=== PATIENT | female | born 1945 | race Caucasian/White ===

== ENCOUNTER 2017-04-30 15:46 | Inpatient (IN) | payer MEDICARE, MEDICAID ==
--- NOTE | 2017-04-30 16:22 | ED Physician Chart ---
ED Chief Complaint/HPI - Patient Information Date Seen:: 04/30/17 Time Seen:: 16:05 Chief Complaint:: constipation History of Present Illness:: Patient states she always has constipation. There was a small amount of blood on her stool last week. Allergies:: Allergies Allergy/AdvReac Type Severity Reaction Status Date / Time No Known Allergies Allergy Verified 04/30/17 15:52 Historian:: Patient Review:: Transfer documents Reviewed ED Review of Systems - Review of Systems General/Constitutional: No fever, No chills Skin: No skin lesions Head: No headache Eyes: No loss of vision ENT: No earache Neck: No neck pain Cardio Vascular: No chest pain Pulmonary: No SOB GI: Hematochezia, Constipation G/U: No dysuria, No frequency, No hematuria Musculoskeletal: No bone or joint pain, No back pain, No muscle pain Psychiatric: No prior psych history Hematopoietic: No bruising Allergic/Immuno: No urticaria Neurological: No syncope ED Past Medical History - Past Medical History Past Medical History: Other (patient has been paraplegic for the last 5 years since she had thoracic spine surgery for a cyst. 6 months ago she had mid spine surgery) Family History: None Social History: Non Smoker, No Alcohol Surgical History: other (as above and bladder surgery and partial thyroidectomy) Psychiatricy History: None Medication: Reviewed Family Medical History - Family Member Mother History Unknown: Yes ED Physical Exam - Physical Examination General/Constitutional: Awake, Well-developed, well-nourished, Alert, No distress Head: Atraumatic Eyes: Lids, conjuctiva normal, PERRL Skin: Nl inspection, No rash, No skin lesions ENMT: External ears, nose nl, TM canals nl, Nasal exam nl, Lips, teeth, gums nl Neck: No nuchal rigidity Respiratory: Nl effort/Exclusion, Clear to Auscultation, No Wheeze/Rhonchi/Rales Cardio Vascular: RRR, No murmur, gallop, rubs GI: No tenderness/rebounding/guarding, No organomegaly Other GI comments:: Rectal exam demonstrated 4/4 brown stool in the rectosigmoid colon : No CVA tenderness Extremities: Normal digits & nails Other Neuro/Psych comments:: Slight active movement of both lower legs Misc: No paraspinal tenderness ED Labs/Radiology/EKG Results - Lab Results Results: Laboratory Results - last 24 hr 04/30/17 04/30/17 04/30/17 16:18 16:18 16:18 WBC 5.3 RBC 4.52 Hgb 13.2 Hct 39.7 L MCV 87.9 MCH 29.3 MCHC Differential 33.3 RDW 14.1 Plt Count 281 MPV 8.9 Neutrophils % 54.2 Lymphocytes % 34.4 Monocytes % 8.3 Eosinophils % 2.2 Basophils % 0.9 PT 10.8 INR 1.04 PTT (Actin FS) 20.3 L Sodium 139 Potassium 3.7 Chloride 108 H Carbon Dioxide 25.1 Anion Gap 9.6 BUN 15 Creatinine 0.7 Est GFR ( Amer) > 60.0 Est GFR (Non-Af Amer) > 60.0 BUN/Creatinine Ratio 21.4 Glucose 119 H Calcium 10.2 Stool Occult Blood 04/30/17 16:20 WBC RBC Hgb Hct MCV MCH MCHC Differential RDW Plt Count MPV Neutrophils % Lymphocytes % Monocytes % Eosinophils % Basophils % PT INR PTT (Actin FS) Sodium Potassium Chloride Carbon Dioxide Anion Gap BUN Creatinine Est GFR ( Amer) Est GFR (Non-Af Amer) BUN/Creatinine Ratio Glucose Calcium Stool Occult Blood NEGATIVE - Radiology Results Results: KUB showed stool in the rectosigmoid; otherwise it was not much stool throughout the rest of the gastrointestinal tract ED Septic Shock - . Is Septic Shock (SBP<90, OR Lactate>4 mmol\L) present?: No ED Reassessment (Disposition) - Reassessment Reassessment Condition:: Unchanged - Diagnosis Diagnosis:: History of rectal bleeding; constipation; paraplegia - Patient Disposition Admitted to:: Med/Surg Spoke to:: Jojo Jones Admitting Medical Physician:: Jojo Jones
[2017-04-30 16:25] LABS: % BASOPHILS 0.9 % (0.0-2.0); % EOSINOPHILS 2.2 % (0.0-5.0); % LYMPHOCYTES 34.4 % (20.0-50.0); % MONOCYTES 8.3 % (2.0-10.0); % NEUTROPHILS 54.2 % (40.0-80.0); EOSINOPHILE ABSOLUTE 0.1 Th/cmm (0.1-0.4); HEMATOCRIT 39.7 % (41.0-60); HEMOGLOBIN 13.2 gm/dL (12-16); LYMPHOCYTE ABSOLUTE 1.8 Th/cmm (1.5-3.0); MEAN CELL VOLUME 87.9 fl (81-100); MEAN CORPUSCULAR HEMOGLOBIN 29.3 pg (27.0-31.0); MEAN CORPUSCULAR HGB CONC 33.3 pg (28.0-36.0); MEAN PLATELET VOLUME 8.9 fl; MONOCYTE ABSOLUTE 0.4 Th/cmm (0.3-1.0); PLATELET COUNT 281 Th/cmm (150-400); RED BLOOD COUNT 4.52 Mil/cmm (3.80-5.20); RED CELL DISTRIBUTION WIDTH 14.1 % (11.5-20.0); WHITE BLOOD COUNT 5.3 Th/cmm (4.8-10.8)
[2017-04-30 16:39] LABS: INR 1.04 (0.5-1.4); PROTHROMBIN TIME (TEST) 10.8 SECONDS (9.5-11.5)
[2017-04-30 16:41] LABS: ANION GAP 9.6 (7.0-16.0); BUN - UREA NITROGEN 15 mg/dL (7-25); CALCIUM SERUM 10.2 mg/dL (8.6-10.3); CARBON DIOXIDE 25.1 mEq/L (21.0-31.0); CHLORIDE 108 mEq/L (98-107); CREATININE - SERUM 0.7 mg/dL (0.6-1.2); GFR AFRICAN-AMERICAN > 60.0 ml/min (>90); GFR NON AFRICAN-AMERICAN > 60.0 ml/min; GLUCOSE 119 mg/dL (70-105); POTASSIUM SERUM 3.7 mEq/L (3.5-5.1); SODIUM SERUM 139 mEq/L (136-145)
[2017-04-30] MEDS ORDERED: Hydrocodone/APAP 10 mg/325 mg Tab PO PRN (19:23)
[2017-04-30] MEDS ORDERED: Magnesium Hydroxide (MOM) 30 mL UDC PO PRN (19:23)
[2017-04-30] MEDS ORDERED: Fleet Enema 135 mL RC PRN (19:23)
--- NOTE | 2017-04-30 19:58 | History & Physical ---
ADMIT DATE: 04/30/2017 CHIEF COMPLAINT: Lower GI bleeding, abdominal pain. HISTORY OF PRESENT ILLNESS: The patient is a 72-year-old female with long history of advanced degenerative disk disease, status post back surgery with a cauda equina syndrome and neurogenic bladder dysfunction, a resident at a local rehab center, transferred to the Emergency Room with abdominal pain and possible lower GI bleeding. The patient evaluated by the ER physician, admitted to the hospital for more workup. No nausea, no vomiting, no fever, no chills, no dysuria or hematuria. PAST MEDICAL HISTORY: Significant for advanced degenerative disk disease, cauda equina syndrome, and neurogenic bladder disorder. PAST SURGICAL HISTORY: Back surgery. ALLERGIES: None. MEDICATIONS: Follow admission reconciliation. SOCIAL HISTORY: No smoking, no alcohol, no drugs. FAMILY HISTORY: Noncontributory. REVIEW OF SYSTEMS: IMMUNOSYSTEM: No history of chronic renal disorder. CARDIOVASCULAR SYSTEM: No coronary artery disease. ENDOCRINE SYSTEM: No diabetes or thyroid problem. GASTROINTESTINAL: She has abdominal pain, possible lower GI bleeding. NEUROLOGICAL: She has weakness of lower extremities. PHYSICAL EXAMINATION: GENERAL: She is awake, alert, oriented. VITAL SIGNS: Temperature 98.8, heart rate 78, blood pressure 123/70. HEENT: Normocephalic. Pupils reactive to light and accommodation. Sclerae clear. NECK: Supple. Negative for lymphadenopathy, JVD or bruit. CHEST: Air entry bilateral normal, rhonchi or wheezing. HEART: S1, S2 normal, no gallop rhythm. ABDOMEN: Soft, mild tenderness, rebound negative. EXTREMITIES: No edema. NEUROLOGIC: She is awake, alert, oriented. She has weakness of both lower extremities. LABORATORY DATA: White blood cell 5.3, hemoglobin 13.2, hematocrit 39.7, platelet 81. Sodium 139, potassium 3.7, BUN is 15, and creatinine 0.7. ASSESSMENT: 1. Acute abdominal pain. 2. Lower gastrointestinal bleeding. 3. Weakness of lower extremities for advanced degenerative disk disease and cauda equina. 4. Neurogenic bladder dysfunction. PLAN: The patient admitted to the hospital, started on IV fluid, clear liquid diet. GI consultation obtained. The patient is a full code. [facility]# [id number]
[2017-04-30] MEDS: D5-0.45NS w/20 mEq KCL 1,000 ML IV SCH (21:38)
--- NOTE | 2017-05-01 08:15 | Diagnostic Imaging Report ---
Exam: KUB of the abdomen. HISTORY: Constipation. Findings: Frontal examination of the abdomen reviewed. The study demonstrates moderate amount of fecal content in the left colon. Lower abdomen is not visualized. Bony structures intact. No abnormal masses or calcifications are noted. IMPRESSION: Somewhat limited examination lower abdomen is not visualized. Moderate amount of fecal content in the left colon.
[2017-05-01] MEDS ORDERED: VITAMIN B COMPLEX PO SCH (09:00)
[2017-05-01] MEDS: Calcium Carb/Vit D 500 mg/200 U Tab PO SCH (09:27)
[2017-05-01] MEDS: Oxybutynin Chloride 5 mg ER Tab PO SCH (09:28)
[2017-05-01] MEDS: Multivitamin w/ Minerals Tab PO SCH (09:28)
[2017-05-01] MEDS: Enoxaparin 40 mg/0.4 mL 0.4mL Syr SUBQ SCH (09:31)
[2017-05-01] MEDS: D5-0.45NS w/20 mEq KCL 1,000 ML IV SCH (11:31)
[2017-05-01] MEDS ORDERED: VTE Chemical Prophylaxis Screen/Admission MC PRN (15:44)
[2017-05-01] MEDS: Vitamin B Complex w/Vitamin C Tab PO SCH (18:15)
--- NOTE | 2017-05-01 19:26 | Internal Medicine Prog Note ---
Internal Medicine Subjective - Subjective Service Date: 05/01/17 Patient seen and examined:: with staff Patient is:: awake, verbal, in bed, talking Per staff patient has:: no adverse event (SHE STILL HAS CONSTIPATION.) Internal Medicine Objective - Results Result Diagrams: 04/30/17 16:18 04/30/17 16:18 Recent Labs: Laboratory Last Values WBC 5.3 Th/cmm (4.8-10.8) 04/30/17 16:18 RBC 4.52 Mil/cmm (3.80-5.20) 04/30/17 16:18 Hgb 13.2 gm/dL (12-16) 04/30/17 16:18 Hct 39.7 % (41.0-60) L 04/30/17 16:18 MCV 87.9 fl (81-100) 04/30/17 16:18 MCH 29.3 pg (27.0-31.0) 04/30/17 16:18 MCHC Differential 33.3 pg (28.0-36.0) 04/30/17 16:18 RDW 14.1 % (11.5-20.0) 04/30/17 16:18 Plt Count 281 Th/cmm (150-400) 04/30/17 16:18 MPV 8.9 fl 04/30/17 16:18 Neutrophils % 54.2 % (40.0-80.0) 04/30/17 16:18 Lymphocytes % 34.4 % (20.0-50.0) 04/30/17 16:18 Monocytes % 8.3 % (2.0-10.0) 04/30/17 16:18 Eosinophils % 2.2 % (0.0-5.0) 04/30/17 16:18 Basophils % 0.9 % (0.0-2.0) 04/30/17 16:18 PT 10.8 SECONDS (9.5-11.5) 04/30/17 16:18 INR 1.04 (0.5-1.4) 04/30/17 16:18 PTT (Actin FS) 20.3 SECONDS (26.0-38.0) L 04/30/17 16:18 Sodium 139 mEq/L (136-145) 04/30/17 16:18 Potassium 3.7 mEq/L (3.5-5.1) 04/30/17 16:18 Chloride 108 mEq/L (98-107) H 04/30/17 16:18 Carbon Dioxide 25.1 mEq/L (21.0-31.0) 04/30/17 16:18 Anion Gap 9.6 (7.0-16.0) 04/30/17 16:18 BUN 15 mg/dL (7-25) 04/30/17 16:18 Creatinine 0.7 mg/dL (0.6-1.2) 04/30/17 16:18 Est GFR ( Amer) > 60.0 ml/min (>90) 04/30/17 16:18 Est GFR (Non-Af Amer) > 60.0 ml/min 04/30/17 16:18 BUN/Creatinine Ratio 21.4 04/30/17 16:18 Glucose 119 mg/dL (70-105) H 04/30/17 16:18 Calcium 10.2 mg/dL (8.6-10.3) 04/30/17 16:18 Stool Occult Blood NEGATIVE (NEGATIVE) 04/30/17 16:20 - Physical Exam Vitals and I&O: Vital Signs Temp 97.8 F 05/01/17 15:57 Pulse 74 05/01/17 15:57 Resp 17 05/01/17 15:57 BP 110/65 05/01/17 15:57 Pulse Ox 96 05/01/17 15:57 Intake & Output 05/01/17 05/01/17 05/02/17 06:59 18:59 06:59 Intake Total 1000 Output Total 1050 Balance -1050 1000 Weight (lbs) 61.235 kg Intake: Intake, IV Amount 1000 D5-0.45NS w/20 mEq KCL 1, 1000 000 ml @ 75 mls/hr IV . [id number] [facility] Rx#:[id number] Output: Urine 1050 Active Medications: Current Medications Acetaminophen (Tylenol) 650 mg PO Q4H PRN PRN Reason: PAIN Last Admin: 05/01/17 18:02 Dose: 650 mg Acetaminophen/Hydrocodone Bitart ([place] 10 Mg/325 Mg) 1 tab PO Q4H PRN PRN Reason: MODERATE PAIN Stop: 06/29/17 19:22 Alprazolam (Xanax) 0.25 mg PO Q12H PRN; Protocol PRN Reason: Anxiety Stop: 06/29/17 19:22 Calcium/Vitamin D (Oscal W/Vitamin D) 1 tab PO DAILY [facility] Stop: 06/30/17 08:59 Last Admin: 05/01/17 09:27 Dose: 1 tab Docusate Sodium (Colace) 100 mg PO BID [facility] Stop: 06/30/17 08:59 Last Admin: 05/01/17 16:20 Dose: 100 mg Enoxaparin Sodium (Lovenox) 40 mg SUBQ DAILY [facility] Stop: 06/30/17 08:59 Last Admin: 05/01/17 09:31 Dose: 40 mg Folic Acid (Folate) 1 mg PO DAILY [facility] Stop: 06/30/17 08:59 Last Admin: 05/01/17 09:28 Dose: 1 mg Gabapentin (Neurontin) 300 mg PO BID [facility] Stop: 06/30/17 08:59 Last Admin: 05/01/17 16:20 Dose: 300 mg Potassium Chloride/Dextrose/Sod Cl (D5-0.45ns W/20 Meq Kcl) 1,000 mls @ 75 mls/ hr IV .[id number] [facility] Stop: 06/29/17 18:53 Last Admin: 05/01/17 11:31 Dose: 75 mls/hr Magnesium Hydroxide (Milk Of Magnesia) 30 ml PO Q12H PRN PRN Reason: Constipation Stop: 06/29/17 19:22 Meclizine HCl (Antivert) 25 mg PO Q8H PRN PRN Reason: Dizziness Last Admin: 05/01/17 09:31 Dose: 25 mg Megestrol Acetate (Megace) 400 mg PO DAILY [facility] Stop: 06/30/17 08:59 Last Admin: 05/01/17 09:28 Dose: 400 mg Miscellaneous (Vte Chemical Prophylaxis Screen/ Admission) 1 ea [facility] PRN PRN PRN Reason: PROTOCOL Stop: 06/30/17 15:43 Morphine Sulfate (Morphine Ir) 15 mg PO Q8H PRN PRN Reason: Severe Pain Stop: 06/29/17 19:22 Last Admin: 04/30/17 23:13 Dose: 15 mg Oxybutynin Chloride (Ditropan Xl) 5 mg PO DAILY [facility] Stop: 06/30/17 08:59 Last Admin: 05/01/17 09:28 Dose: 5 mg Senna (Senna) 17.2 mg PO Q24H PRN PRN Reason: BOWEL MANAGEMENT Stop: 06/29/17 19:22 Sodium Phosphate (Fleet Enema) 135 ml RC Q24H PRN PRN Reason: BOWEL MANAGEMENT Stop: 06/29/17 19:22 Vitamin B Complex/Vit C/Folic Acid (Vitamin B Complex W/Vitamin C) 1 tab PO DAILY [facility] Stop: 06/30/17 09:59 Last Admin: 05/01/17 18:15 Dose: 1 tab General: alert HEENT: NC/AT, PERRLA, EOMI, anicteric sclerae, throat clear Neck: Supple, No JVD, No thyromegaly, +2 carotid pulse wo bruit, No LAD Lungs: CTAB Cardiovascular: RRR, Normal S1, Normal S2, without murmur Abdomen: soft, non-tender, non-distended Extremities: clear Neurological: no change Internal Medicine Assmt/Plan - Assessment Assessment: 1.ACUTE ABDOMINAL PAIN. 2.PARAPLEGIA. 3.SEVER DDD. - Plan Plan: CONTINUE ON CURRENT MEDICATION AND DIET.
--- NOTE | 2017-05-01 22:11 | Consultation ---
DATE OF CONSULTATION: 05/01/2017 INPATIENT GASTROINTESTINAL CONSULTATION REFERRING PHYSICIAN: Dr. Jones. REASON FOR CONSULTATION: Rectal bleeding. HISTORY OF PRESENT ILLNESS: This is a 72-year-old female from a nursing facility, allegedly stated that she had an episode of rectal bleeding and for that reason was sent to the hospital. While here at the hospital, there are no reports of any rectal bleeding. She denies having any abdominal pain. She denies nausea, vomiting, hematemesis, or coffee-ground emesis. PAST MEDICAL HISTORY: Degenerative joint disease, cauda equina syndrome, and neurogenic bladder. PAST SURGICAL HISTORY: Back surgery. FAMILY HISTORY: Noncontributory. SOCIAL HISTORY: Denies tobacco, alcohol, or IV drug usage. ALLERGIES: None. CURRENT MEDICATIONS: Tylenol, [place], Xanax, Colace, Lovenox, folic acid, Neurontin, milk of magnesia, Antivert, Megace, morphine, senna, and Fleet enema. REVIEW OF SYSTEMS: A 10-point review of system was obtained. The pertinent positive was the rectal bleeding. All systems were otherwise negative. PHYSICAL EXAMINATION: VITAL SIGNS: Temperature 97.4, breathing 19, pulse 89, blood pressure 100/58, and satting 97%. GENERAL: In no apparent distress. EYES: Anicteric. Normal conjunctivae. HEENT: Normocephalic and atraumatic. Moist mucous membranes. NECK: Soft and supple. CHEST: Clear. No effort. CARDIOVASCULAR: Regular rate and rhythm. ABDOMEN: Soft, nontender, and nondistended. SKIN: Warm and dry. EXTREMITIES: Revealed no cyanosis. PSYCHOLOGIC: Alert and oriented x 3. LABORATORY DATA: Show white count 5.3, hemoglobin 13.2, and platelets of 281. INR is 1.04. Stool OB is negative. BUN 15 and creatinine 0.7. IMPRESSION: A 72-year-old female with alleged rectal bleeding, not active at this time with normal hemoglobin. Stool OB is negative. The patient states that she has had a colonoscopy in the past, but it has been a long time. She cannot remember when it was done exactly. PLAN: 1. Follow H and H. 2. Consider screening colonoscopy. 3. Continue supportive care. Thank you for allowing me to participate. Please call me if you have any questions. [facility]# [id number]
[2017-05-02] MEDS: D5-0.45NS w/20 mEq KCL 1,000 ML IV SCH (06:16)
[2017-05-02] MEDS: Multivitamin w/ Minerals Tab PO SCH (09:21)
[2017-05-02] MEDS: Vitamin B Complex w/Vitamin C Tab PO SCH (09:21)
[2017-05-02] MEDS: Enoxaparin 40 mg/0.4 mL 0.4mL Syr SUBQ SCH (09:22)
[2017-05-02] MEDS: Calcium Carb/Vit D 500 mg/200 U Tab PO SCH (09:28)
[2017-05-02] MEDS: Oxybutynin Chloride 5 mg ER Tab PO SCH (09:37)
--- NOTE | 2017-05-02 19:28 | Internal Medicine Prog Note ---
Internal Medicine Subjective - Subjective Service Date: 05/02/17 Patient seen and examined:: with staff Patient is:: awake, verbal, in bed, talking Per staff patient has:: no adverse event (SHE STILL HAS CONSTIPATION.) Internal Medicine Objective - Results Result Diagrams: 04/30/17 16:18 04/30/17 16:18 Recent Labs: Laboratory Last Values WBC 5.3 Th/cmm (4.8-10.8) 04/30/17 16:18 RBC 4.52 Mil/cmm (3.80-5.20) 04/30/17 16:18 Hgb 13.2 gm/dL (12-16) 04/30/17 16:18 Hct 39.7 % (41.0-60) L 04/30/17 16:18 MCV 87.9 fl (81-100) 04/30/17 16:18 MCH 29.3 pg (27.0-31.0) 04/30/17 16:18 MCHC Differential 33.3 pg (28.0-36.0) 04/30/17 16:18 RDW 14.1 % (11.5-20.0) 04/30/17 16:18 Plt Count 281 Th/cmm (150-400) 04/30/17 16:18 MPV 8.9 fl 04/30/17 16:18 Neutrophils % 54.2 % (40.0-80.0) 04/30/17 16:18 Lymphocytes % 34.4 % (20.0-50.0) 04/30/17 16:18 Monocytes % 8.3 % (2.0-10.0) 04/30/17 16:18 Eosinophils % 2.2 % (0.0-5.0) 04/30/17 16:18 Basophils % 0.9 % (0.0-2.0) 04/30/17 16:18 PT 10.8 SECONDS (9.5-11.5) 04/30/17 16:18 INR 1.04 (0.5-1.4) 04/30/17 16:18 PTT (Actin FS) 20.3 SECONDS (26.0-38.0) L 04/30/17 16:18 Sodium 139 mEq/L (136-145) 04/30/17 16:18 Potassium 3.7 mEq/L (3.5-5.1) 04/30/17 16:18 Chloride 108 mEq/L (98-107) H 04/30/17 16:18 Carbon Dioxide 25.1 mEq/L (21.0-31.0) 04/30/17 16:18 Anion Gap 9.6 (7.0-16.0) 04/30/17 16:18 BUN 15 mg/dL (7-25) 04/30/17 16:18 Creatinine 0.7 mg/dL (0.6-1.2) 04/30/17 16:18 Est GFR ( Amer) > 60.0 ml/min (>90) 04/30/17 16:18 Est GFR (Non-Af Amer) > 60.0 ml/min 04/30/17 16:18 BUN/Creatinine Ratio 21.4 04/30/17 16:18 Glucose 119 mg/dL (70-105) H 04/30/17 16:18 Calcium 10.2 mg/dL (8.6-10.3) 04/30/17 16:18 Stool Occult Blood NEGATIVE (NEGATIVE) 04/30/17 16:20 - Physical Exam Vitals and I&O: Vital Signs Temp 97.2 F 05/02/17 08:00 Pulse 94 05/02/17 08:00 Resp 19 05/02/17 08:00 BP 115/76 05/02/17 08:00 Pulse Ox 100 05/02/17 04:00 Intake & Output 05/02/17 05/02/17 05/03/17 06:59 18:59 07:59 Intake Total 1650 240 Output Total 3100 Balance -1450 240 Weight (lbs) 61.235 kg 58.967 kg Intake: Intake, IV Amount 1000 D5-0.45NS w/20 mEq KCL 1, 1000 000 ml @ 75 mls/hr IV . [id number] [facility] Rx#:[id number] Oral 650 240 Output: Urine 3100 Other: # Bowel Movements 0 Active Medications: Current Medications Acetaminophen (Tylenol) 650 mg PO Q4H PRN PRN Reason: PAIN Last Admin: 05/01/17 18:02 Dose: 650 mg Acetaminophen/Hydrocodone Bitart ([place] 10 Mg/325 Mg) 1 tab PO Q4H PRN PRN Reason: MODERATE PAIN Stop: 06/29/17 19:22 Alprazolam (Xanax) 0.25 mg PO Q12H PRN; Protocol PRN Reason: Anxiety Stop: 06/29/17 19:22 Calcium/Vitamin D (Oscal W/Vitamin D) 1 tab PO DAILY [facility] Stop: 06/30/17 08:59 Last Admin: 05/02/17 09:28 Dose: 1 tab Docusate Sodium (Colace) 100 mg PO BID [facility] Stop: 06/30/17 08:59 Last Admin: 05/02/17 16:04 Dose: 100 mg Enoxaparin Sodium (Lovenox) 40 mg SUBQ DAILY [facility] Stop: 06/30/17 08:59 Last Admin: 05/02/17 09:22 Dose: 40 mg Folic Acid (Folate) 1 mg PO DAILY [facility] Stop: 06/30/17 08:59 Last Admin: 05/02/17 09:21 Dose: 1 mg Gabapentin (Neurontin) 300 mg PO BID [facility] Stop: 06/30/17 08:59 Last Admin: 05/02/17 16:04 Dose: 300 mg Potassium Chloride/Dextrose/Sod Cl (D5-0.45ns W/20 Meq Kcl) 1,000 mls @ 75 mls/ hr IV .[id number] [facility] Stop: 06/29/17 18:53 Last Admin: 05/02/17 06:16 Dose: 75 mls/hr Magnesium Hydroxide (Milk Of Magnesia) 30 ml PO Q12H PRN PRN Reason: Constipation Stop: 06/29/17 19:22 Meclizine HCl (Antivert) 25 mg PO Q8H PRN PRN Reason: Dizziness Last Admin: 05/01/17 09:31 Dose: 25 mg Megestrol Acetate (Megace) 400 mg PO DAILY [facility] Stop: 06/30/17 08:59 Last Admin: 05/02/17 09:20 Dose: Not Given Miscellaneous (Vte Chemical Prophylaxis Screen/ Admission) 1 ea [facility] PRN PRN PRN Reason: PROTOCOL Stop: 06/30/17 15:43 Morphine Sulfate (Morphine Ir) 15 mg PO Q8H PRN PRN Reason: Severe Pain Stop: 06/29/17 19:22 Last Admin: 04/30/17 23:13 Dose: 15 mg Oxybutynin Chloride (Ditropan Xl) 5 mg PO DAILY [facility] Stop: 06/30/17 08:59 Last Admin: 05/02/17 09:37 Dose: 5 mg Senna (Senna) 17.2 mg PO Q24H PRN PRN Reason: BOWEL MANAGEMENT Stop: 06/29/17 19:22 Sodium Phosphate (Fleet Enema) 135 ml RC Q24H PRN PRN Reason: BOWEL MANAGEMENT Stop: 06/29/17 19:22 Vitamin B Complex/Vit C/Folic Acid (Vitamin B Complex W/Vitamin C) 1 tab PO DAILY [facility] Stop: 06/30/17 09:59 Last Admin: 05/02/17 09:21 Dose: 1 tab General: alert HEENT: NC/AT, PERRLA, EOMI, anicteric sclerae, throat clear Neck: Supple, No JVD, No thyromegaly, +2 carotid pulse wo bruit, No LAD Lungs: CTAB Cardiovascular: RRR, Normal S1, Normal S2, without murmur Abdomen: soft, non-tender, non-distended Extremities: clear Neurological: no change Internal Medicine Assmt/Plan - Assessment Assessment: 1.ACUTE ABDOMINAL PAIN. 2.PARAPLEGIA. 3.SEVER DDD. 4.NEUROGENIC BLADDER. - Plan Plan: CONTINUE ON CURRENT MEDICATION AND DIET.
[2017-05-03] MEDS: Calcium Carb/Vit D 500 mg/200 U Tab PO SCH (08:43)
[2017-05-03] MEDS: Multivitamin w/ Minerals Tab PO SCH (08:45)
[2017-05-03] MEDS: Vitamin B Complex w/Vitamin C Tab PO SCH (08:46)
[2017-05-03] MEDS: Oxybutynin Chloride 5 mg ER Tab PO SCH (08:48)
[2017-05-03] MEDS: Enoxaparin 40 mg/0.4 mL 0.4mL Syr SUBQ SCH (08:48)
[2017-05-03] MEDS: D5-0.45NS w/20 mEq KCL 1,000 ML IV SCH (08:57)
--- NOTE | 2017-05-27 21:04 | Discharge Summary ---
DATE OF DISCHARGE: 05/03/2017 FINAL DIAGNOSES: 1. Acute gastroenteritis. 2. Lower gastrointestinal bleeding. 3. Advanced degenerative disk disease of the lumbar spine with cauda equina syndrome. 4. Neurogenic bladder. REVIEW OF HISTORY: The patient is a 72-year-old female with long history of advanced degenerative disk disease of lumbar spine with cauda equina and neurogenic bladder, who presents to the Emergency Room with lower GI bleeding, acute abdominal pain, nausea, vomiting, evaluated by the ER physician, admitted to the hospital. GI consultation obtained. PHYSICAL EXAMINATION: VITAL SIGNS: Temperature 98.8, heart rate 78, blood pressure 123/70. CHEST: Clear to auscultation. ABDOMEN: Soft, diffuse tenderness, rebound negative. EXTREMITIES: No edema. The patient started on IV fluid, IV Protonix, clear liquid diet. COURSE OF HOSPITALIZATION: During hospitalization, the patient was seen by the customer success advocate and on 05/02/2017, the patient was feeling better. No nausea, no vomiting, less abdominal pain. Her diet was advanced. On the 05/03/2017, the patient was clinically stable and cleared by the customer success advocate. DISPOSITION: The patient discharged back to [facility] to continue on medication and diet. CONDITION ON DISCHARGE: Stable. MEDICATIONS: Follow discharge reconciliation. [facility]# [id number]
== END 2017-05-03 16:30 | DRG 378 ==
LOC: ER 15:46 → MSI 17:50
PROVIDERS: ADMIT Family Medicine; ATTEND Family Medicine
DX: K92.2 Gastrointestinal hemorrhage, unspecified (principal); G83.4 Cauda equina syndrome; G82.20 Paraplegia, unspecified; K52.9 Noninfective gastroenteritis and colitis, unspecified; M19.90 Unspecified osteoarthritis, unspecified site
CPT/HCPCS: 36415-UA; 74000-TC; 80048-TC; 82270-TC; 85025-TC; 85610-TC; 85730-TC; 90784; J1650; Z7610